=== PATIENT | female | born 1995 | race Caucasian/White ===

== ENCOUNTER 2017-06-13 15:19 | Emergency (ER) | payer BC ==
[2017-06-13 16:42] LABS: BASOPHIL % 0.9 % (0.0-0.4); Eosinophil % 3.8 % (0.00-5.0); Granulocytes % 54.2 % (36.0-66.0); Lymphocytes % 32.1 % (24.0-44.0); Mean Cell Volume 90.4 fl (78-100); Mean Platelet Volume 10.4 fl (6-9.5); Platelet Count 380 K/mm3 (150-450); Red Cell Distribution Width 12.5 % (11.5-14.0); White Blood Count 8.6 K/mm3 (4.0-10.5)
[2017-06-13] MEDS ORDERED: GI COCKTAIL 45 ML (Maalox/Lidocaine) PO ONE (16:45)
[2017-06-13] MEDS ORDERED: Pepcid 20 MG VIAL IV ONE ×2 (16:45→16:56)
[2017-06-13] MEDS ORDERED: Carafate 1 GM PO ONE ×2 (16:45→16:56)
[2017-06-13] MEDS ORDERED: Sodium Chloride 0.9% 1000 ML 1,000 ML IV STA (16:45)
--- NOTE | 2017-06-13 16:45 | ERPHSYRPT ---
- History of Present Illness Time Seen by Provider: 06/13/17 16:38 Historian: patient Exam Limitations: no limitations Patient Subjective Stated Complaint: pt here for abd pain. epigastric pain, was dx with ulcers and is on meds. she states it was getting better untill today, nauseated, not eating well Triage Nursing Assessment: pt alert, walked in, resp easy, abd soft, tender in epigastric area only, Physician History: The patient is a 22-year-old female with parents complaining of exacerbation of her chronic epigastric pain today. She's had epigastric pain/gastric ulcer for more than a year. She is on a proton pump inhibitor. She is careful with what she eats. Today the pain increased causing her to double over. She denies nausea, vomiting, or diarrhea. She denies fever. Her past medical history is significant only for a probable gastric ulcer. Timing/Duration: today Activities at Onset: none Quality: aching, sharpness Abdominal Pain Onset Location: epigastric Pain Radiation: no radiation Severity of Pain-Max: severe Severity of Pain-Current: moderate Modifying Factors: Improves With: antacids Associated Symptoms: denies symptoms Previous symptoms: same symptoms as today Allergies/Adverse Reactions: No Known Drug Allergies Allergy (Verified 06/13/17 15:58) Home Medications: Cetirizine HCl [Zyrtec] 10 mg PO DAILY 06/13/13 [History] Norgestimate-Ethinyl Estradiol [Ortho Tri-Cyclen] 1 each PO UD 06/13/13 [History ] Albuterol Sulfate [Proventil] 2.5 mg IH Q4-6HPRN PRN 06/13/17 [History] PANTOPRAZOLE 40 mg Tablet [Protonix 40MG Tablet] 40 mg DAILY 06/13/17 [ History] Hx Tetanus, Diphtheria Vaccination/Date Given: Yes Hx Influenza Vaccination/Date Given: No Hx Pneumococcal Vaccination/Date Given: No Immunizations Up to Date: Yes - Review of Systems Constitutional: No Fever, No Chills Eyes: No Symptoms Ears, Nose, & Throat: No Symptoms Respiratory: No Cough, No Dyspnea Cardiac: No Chest Pain, No Edema, No Syncope Abdominal/Gastrointestinal: Abdominal Pain, No Nausea, No Vomiting, No Diarrhea Genitourinary Symptoms: No Dysuria Musculoskeletal: No Back Pain, No Neck Pain Skin: No Rash Neurological: No Dizziness, No Focal Weakness, No Sensory Changes Psychological: No Symptoms Endocrine: No Symptoms Hematologic/Lymphatic: No Symptoms Immunological/Allergic: No Symptoms All Other Systems: Reviewed and Negative - Past Medical History Pertinent Past Medical History: Yes Neurological History: No Pertinent History ENT History: No Pertinent History Cardiac History: No Pertinent History Respiratory History: Asthma Endocrine Medical History: No Pertinent History Musculoskeletal History: No Pertinent History GI Medical History: Ulcer History: No Pertinent History Psycho-Social History: No Pertinent History Female Reproductive Disorders: No Pertinent History 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 - Past Surgical History Past Surgical History: No Neuro Surgical History: No Pertinent History Cardiac: No Pertinent History Respiratory: No Pertinent History Gastrointestinal: No Pertinent History Genitourinary: No Pertinent History Musculoskeletal: No Pertinent History Female Surgical History: No Pertinent History - Social History Smoking Status: Never smoker Exposure to second hand smoke: No Drug Use: none Patient Lives Alone: No - Female History Hx Last Menstrual Period: 3 days ago Hx Now: No - Nursing Vital Signs Nursing Vital Signs: Initial Vital Signs Temperature 98.6 F 06/13/17 15:50 Pulse Rate 88 06/13/17 15:50 Respiratory Rate 16 06/13/17 15:50 Blood Pressure 119/58 06/13/17 15:50 O2 Sat by Pulse Oximetry 99 06/13/17 15:50 Pain Scale Pain Intensity 0 - Physical Exam General Appearance: no apparent distress, alert Eye Exam: PERRL/EOMI, eyes nml inspection Ears, Nose, Throat Exam: normal ENT inspection, pharynx normal, moist mucous membranes Neck Exam: normal inspection, non-tender, supple, full range of motion Respiratory Exam: normal breath sounds, lungs clear, No respiratory distress Cardiovascular Exam: regular rate/rhythm, normal heart sounds Gastrointestinal/Abdomen Exam: tenderness (epigastric) Pelvic Exam: not done Rectal Exam: not done Back Exam: normal inspection, normal range of motion, No CVA tenderness, No vertebral tenderness Extremity Exam: normal inspection, normal range of motion, pelvis stable Neurologic Exam: alert, oriented x 3, cooperative, normal mood/affect, nml cerebellar function, sensation nml, No motor deficits Skin Exam: normal color, warm, dry SpO2 Interpretation: normal SpO2: 99 Oxygen Delivery: Room Air Ordered Tests: Active Orders 24 hr Category Date Time Status Clean Catch Urine Specimen STAT Care 06/13/17 16:33 Active IV Insertion STAT Care 06/13/17 16:45 Active CBC W DIFF Stat Lab 06/13/17 16:30 Completed CMP Stat Lab 06/13/17 16:30 Completed HCG,QUALITATIVE URINE Stat Lab 06/13/17 16:30 Completed LIPASE Stat Lab 06/13/17 16:30 Completed UA W/ MICROSCOPIC Stat Lab 06/13/17 16:30 Completed Medication Summary Generic Name Dose Route Start Last Admin Trade Name Freq PRN Reason Stop Dose Admin Sodium Chloride 1,000 mls @ 999 mls/hr 06/13/17 16:45 06/13/17 17:03 Sodium Chloride 0.9% 1000 Ml IV 06/13/17 17:45 999 mls/hr .Q1H1M STA Administration Discontinued Medications Generic Name Dose Route Start Last Admin Trade Name Freq PRN Reason Stop Dose Admin Al Hydrox/Mg Hydrox/Simethicone Confirm 06/13/17 16:56 Maalox Es 30 Ml Unit Dose Administered 06/13/17 16:57 Dose 30 ml .ROUTE .STK-MED ONE Famotidine 20 mg 06/13/17 16:45 06/13/17 16:57 Pepcid 20 Mg Vial IV 06/13/17 16:46 20 mg STAT ONE Administration Famotidine Confirm 06/13/17 16:56 Pepcid 20 Mg Vial Administered 06/13/17 16:57 Dose 20 mg IV .STK-MED ONE Sodium Chloride Confirm 06/13/17 16:56 Sodium Chloride 0.9% 1000 Ml Administered 06/13/17 16:57 Dose 1,000 mls @ ud .ROUTE .STK-MED ONE Lidocaine HCl Confirm 06/13/17 16:56 Xylocaine Hcl Viscous * Administered 06/13/17 16:57 Dose 1 ml .ROUTE .STK-MED ONE Magnesium Hydroxide 45 ml 06/13/17 16:45 06/13/17 16:59 Gi Cocktail 45 Ml (Maalox/Lidocaine) PO 06/13/17 16:46 45 ml STAT ONE Administration Sucralfate 1 g 06/13/17 16:45 06/13/17 16:57 Carafate 1 Gm PO 06/13/17 16:46 1 g STAT ONE Administration Sucralfate Confirm 06/13/17 16:56 Carafate 1 Gm Administered 06/13/17 16:57 Dose 1 g PO .STK-MED ONE Lab/Rad Data: Laboratory Result Diagrams 06/13/17 16:30 06/13/17 16:30 Laboratory Results 06/13/17 06/13/17 06/13/17 Range/Units 16:30 16:30 16:30 WBC 8.6 (4.0-10.5) K/mm3 RBC 4.70 (4.1-5.4) M/mm3 Hgb 14.1 (12.0-16.0) gm/dl Hct 42.5 (35-47) % MCV 90.4 (78-100) fl MCH 30.0 (26-32) pg MCHC 33.2 (32-36) g/dl RDW 12.5 (11.5-14.0) % Plt Count 380 (150-450) K/mm3 MPV 10.4 H (6-9.5) fl Gran % 54.2 (36.0-66.0) % Lymphocytes % 32.1 (24.0-44.0) % Monocytes % 9.0 (0.0-12.0) % Eosinophils % 3.8 (0.00-5.0) % Basophils % 0.9 (0.0-0.4) % Basophils # 0.08 (0-0.4) Sodium 139 (136-145) mEq/L Potassium 4.0 (3.5-5.1) mEq/L Chloride 103 (98-107) mEq/L Carbon Dioxide 26.4 (21-32) mEq/L Anion Gap 13.5 (5-15) MEQ/L BUN 9 (9-20) mg/dL Creatinine 0.87 (0.55-1.30) mg/dl Estimated GFR > 60 ML/MIN Glucose 83 (70-110) MG/DL Calcium 9.4 (8.5-10.1) mg/dL Total Bilirubin 0.40 (0.2-1.0) mg/dL AST 16 (15-37) U/L ALT 20 (12-78) U/L Alkaline Phosphatase 52 (46-116) U/L Serum Total Protein 7.8 (6.4-8.2) gm/dL Albumin 4.0 (3.4-5.0) g/dL Lipase 136 (73-393) U/L Ur Collection Type Urine Color (YELLOW) Urine Appearance (CLEAR) Urine pH (5-6) Ur Specific [place] (1.005-1.025) Urine Protein (Negative) Urine Ketones (NEGATIVE) Urine Blood (0-5) Dhaval/ul Urine Nitrite (NEGATIVE) Urine Bilirubin (NEGATIVE) Urine Urobilinogen (0-1) mg/dL Ur Leukocyte Esterase (NEGATIVE) Urine Microscopic RBC (0-2) /HPF Urine Microscopic WBC (0-5) /HPF Ur Epithelial Cells (FEW) /HPF Urine Bacteria (NEGATIVE) /HPF Urine Culture Reflexed (NO) Urine Glucose (NEGATIVE) mg/dL Urine HCG, Qual NEGATIVE (Negative) Specimen Received 06/13/17 Range/Units 16:30 WBC (4.0-10.5) K/mm3 RBC (4.1-5.4) M/mm3 Hgb (12.0-16.0) gm/dl Hct (35-47) % MCV (78-100) fl MCH (26-32) pg MCHC (32-36) g/dl RDW (11.5-14.0) % Plt Count (150-450) K/mm3 MPV (6-9.5) fl Gran % (36.0-66.0) % Lymphocytes % (24.0-44.0) % Monocytes % (0.0-12.0) % Eosinophils % (0.00-5.0) % Basophils % (0.0-0.4) % Basophils # (0-0.4) Sodium (136-145) mEq/L Potassium (3.5-5.1) mEq/L Chloride (98-107) mEq/L Carbon Dioxide (21-32) mEq/L Anion Gap (5-15) MEQ/L BUN (9-20) mg/dL Creatinine (0.55-1.30) mg/dl Estimated GFR ML/MIN Glucose (70-110) MG/DL Calcium (8.5-10.1) mg/dL Total Bilirubin (0.2-1.0) mg/dL AST (15-37) U/L ALT (12-78) U/L Alkaline Phosphatase (46-116) U/L Serum Total Protein (6.4-8.2) gm/dL Albumin (3.4-5.0) g/dL Lipase (73-393) U/L Ur Collection Type VOID Urine Color YELLOW (YELLOW) Urine Appearance CLEAR (CLEAR) Urine pH 6.0 (5-6) Ur Specific [place] 1.010 (1.005-1.025) Urine Protein NEGATIVE (Negative) Urine Ketones NEGATIVE (NEGATIVE) Urine Blood NEGATIVE (0-5) Dhaval/ul Urine Nitrite NEGATIVE (NEGATIVE) Urine Bilirubin NEGATIVE (NEGATIVE) Urine Urobilinogen NORMAL (0-1) mg/dL Ur Leukocyte Esterase NEGATIVE (NEGATIVE) Urine Microscopic RBC 0-2 (0-2) /HPF Urine Microscopic WBC 0-2 (0-5) /HPF Ur Epithelial Cells RARE (FEW) /HPF Urine Bacteria RARE (NEGATIVE) /HPF Urine Culture Reflexed NO (NO) Urine Glucose NEGATIVE (NEGATIVE) mg/dL Urine HCG, Qual (Negative) Specimen Received 06/13/17 2414 - Progress Progress: improved Progress Note: 06/13/17 17:22 After a GI Cocktail pt is feeling much better. Counseled pt/family regarding: lab results, diagnosis, need for follow-up - Departure Time of Disposition: 17:24 Departure Disposition: Home Clinical Impression: Gastritis Condition: Stable Critical Care Time: No Referrals: SO VILLAFUERTE [Primary Care Provider] - Additional Instructions: You have gastritis. You were given famotidine 20 mg and fluids by IV in the ER. You were given a GI cocktail and Carafate 1 g in the ER. Take Carafate 1 g 4 times a day. Follow-up with your local doctor within 1 week for reevaluation. Continue to take your other medications as directed. Prescriptions: Sucralfate [Carafate] 1 g PO QID #28 tablet
[2017-06-13 16:54] LABS: Bilirubin NEGATIVE (NEGATIVE); Blood NEGATIVE Ery/ul (0-5); COMPLETE URINE MICROSCOPIC? YES; Collection Type VOID; Glucose NEGATIVE (NEGATIVE); Leukocyte Esterase NEGATIVE (NEGATIVE)
[2017-06-13 16:55] LABS: ADD URINE CULTURE? NO (NO); Bacteria RARE /HPF (NEGATIVE); Epithelial Cells RARE /HPF (FEW); WBC 0-2 /HPF (0-5)
[2017-06-13] MEDS ORDERED: XYLOCAINE HCl Viscous ONE (16:56)
[2017-06-13] MEDS ORDERED: MAALOX ES 30 ML UNIT DOSE ONE (16:56)
[2017-06-13] MEDS ORDERED: Sodium Chloride 0.9% 1000 ML 1,000 ML ONE (16:56)
[2017-06-13 17:20] LABS: ALKALINE PHOSPHATASE 52 U/L (46-116); ANION GAP 13.5 MEQ/L (5-15); BLOOD UREA NITROGEN 9 mg/dL (9-20); CHLORIDE 103 mEq/L (98-107); Carbon Dioxide 26.4 mEq/L (21-32); Glucose 83 MG/DL (70-110); LIPASE 136 U/L (73-393); SGOT/AST 16 U/L (15-37); SGPT/ALT 20 U/L (12-78); SODIUM 139 mEq/L (136-145); Total Protein 7.8 gm/dL (6.4-8.2)
[2017-06-13 17:44] VITALS: BP 107/49; PULSE 78; O2SAT 100
== END 2017-06-13 17:44 | disposition home or self-care (01) ==
LOC: ED 15:19
DX: K29.70 Gastritis, unspecified, without bleeding (principal); R10.13 Epigastric pain; G89.29 Other chronic pain; K25.9 Gastric ulcer, unspecified as acute or chronic, without hemorrhage or perforation; Z79.899 Other long term (current) drug therapy
CPT/HCPCS: 36000; 36415; 80053; 81000; 83690; 84703; 85025; 96360; 96374; 99284; A9270-GY

== ENCOUNTER 2021-11-05 10:47 | Day surgery (SDC) | payer BC ==
[~2021-11-05 10:47] MED LIST: MEFOXIN 2 GM PREMIX** 2 GM/50 ML ML IV SCH; Sensorcaine 0.25% 10 ML ONE
[2021-11-05 11:29] VITALS: O2SAT 100
[2021-11-05] MEDS ORDERED: Lactated Ringers 1,000 ML IV SCH (11:30)
[2021-11-05] MEDS ORDERED: MEFOXIN 2 GM PREMIX** 2 GM/50 ML ML IV ONE (11:50)
[2021-11-05] MEDS ORDERED: Lactated Ringers 1,000 ML IV ONE (11:50)
[2021-11-05] MEDS ORDERED: Zofran 4 MG/2 ML VIAL ONE (12:43)
[2021-11-05] MEDS ORDERED: Xylocaine-Mpf 2% 5 Ml Vial ONE (12:43)
[2021-11-05] MEDS ORDERED: Versed 2 MG/2 ML Injection ONE (12:43)
[2021-11-05] MEDS ORDERED: TORAdol 30 mg Injection ONE (12:43)
[2021-11-05] MEDS ORDERED: DIPRIVAN 200 MG/20 ML IV ONE (12:43)
[2021-11-05] MEDS ORDERED: Decadron 4 MG INJ ONE (12:43)
[2021-11-05] MEDS ORDERED: BRIDION 200MG/2ML IV ONE (12:43)
[2021-11-05] MEDS ORDERED: Zemuron 100 MG/10 ML ONE (12:43)
[2021-11-05] MEDS ORDERED: SUBLIMAZE 100 MCG/2 ML ONE (12:43)
[2021-11-05 15:27] VITALS: BP 119/82; PULSE 54
--- NOTE | 2021-11-06 08:35 | OP ---
SURGERY DATE/TIME: 11/05/2021 1251 PREOPERATIVE DIAGNOSIS: Gallbladder dyskinesia. POSTOPERATIVE DIAGNOSES: 1) Gallbladder dyskinesia. 2) Cholesterolosis. PROCEDURE: Laparoscopic cholecystectomy. SURGEON: Dr. Sam Diaz. ANESTHESIA: General endotracheal tube. ESTIMATED BLOOD LOSS: None. DRAINS: None. COMPLICATIONS: None. CONDITION: Stable. INDICATIONS: A patient with upper abdominal symptoms. HIDA scan 8%. Seen and examined wishes to proceed with surgery. DESCRIPTION OF PROCEDURE AND FINDINGS: Taken to surgery. General anesthetic, routine prep and drape. Veress needle inserted. Opening pressure of -1, insufflating pressure 14. Four - 5's under direct visualization. Good visualization was present. The camera switched to epigastric port looking down to umbilicus and pelvis and this was satisfactory. Anterior abdominal surface was totally normal. Liver normal. Gallbladder distended and sloppy. Cystic duct defined. Cystic artery defined. Both structures triply clipped and transected. Clips noted across and well approximated. Gallbladder rolled out of gallbladder fossa. The gallbladder delivered through the epigastric port with minimal widening. No hole closure device was used. Skin closed with 4-0 Vicryl and Steri-Strips. The patient tolerated the procedure satisfactorily.
== END 2021-11-05 15:34 | disposition home or self-care (01) ==
LOC: SDC 10:47
PROVIDERS: ATTEND Surgery
DX: K82.9 Disease of gallbladder, unspecified (principal); K82.4 Cholesterolosis of gallbladder
CPT/HCPCS: 84703; J0694; J1100; J1885; J2250; J2405; J2704; J3010

== ENCOUNTER 2023-04-25 21:43 | Emergency (ER) | payer OTHER ==
[2023-04-25] MEDS ORDERED: Sodium Chloride 0.9% 1000 ML 1,000 ML IV STA (21:46)
[2023-04-25 21:57] VITALS: TEMP 98.3
[2023-04-25] MEDS ORDERED: Sodium Chloride 0.9% 1000 ML 1,000 ML ONE (22:02)
--- NOTE | 2023-04-25 22:13 | ERPHSYRPT ---
- History of Present Illness Time Seen by Provider: 04/25/23 21:45 Historian: patient Exam Limitations: no limitations Patient Subjective Stated Complaint: back pain with rt abd pain Triage Nursing Assessment: pt ambulated in ER without diff, mom at bedside. Pt c/o mid back pain that radiates around to right lower abd area. Abd soft with active bs x 4 quad, tender to RLQ on palpation. LBM today. Pt denies any nausea, vomiting or diarrhea. Physician History: Patient's had some intermittent abdominal pain and back pain over the last 4 days, worse 3 days ago, and was evaluated at an outside urgent care prior to [facility] emergency room and was recommended she come to emergency room for further evaluation and management Timing/Duration: day(s) (4) Activities at Onset: none Quality: aching, cramping Abdominal Pain Onset Location: RUQ Pain Radiation: RLQ, back Severity of Pain-Max: moderate Severity of Pain-Current: mild Modifying Factors: Improves With: nothing Associated Symptoms: No back, No chest pain, No diaphoresis, No diarrhea, No fever/chills, No fatigue, No headache, No heartburn, No loss of appetite, No nausea, No neck pain, No rash, No shortness of breath, No syncope, No vomiting, No weakness Previous symptoms: no prior history, recently seen (Referred to the emergency room due to concerns of something else in the abdomen occurring such as appe ndicitis) Allergies/Adverse Reactions: shellfish derived Allergy (Verified 04/25/23 22:06) hives, swelling, trouble breathing and swallowing shrimp Allergy (Verified 04/25/23 22:06) hives, swelling, trouble breathing and swallowing tree nut Allergy (Verified 04/25/23 22:06) hives, swelling, trouble breathing and swallowing Hx Tetanus, Diphtheria Vaccination/Date Given: Yes Hx Influenza Vaccination/Date Given: No Hx Pneumococcal Vaccination/Date Given: No Immunizations Up to Date: Yes Travel Risk - International Travel Have you traveled outside of the country in past 3 weeks: No - Coronavirus Screening Are you exhibiting any of the following symptoms?: No Close contact with a COVID-19 positive Pt in past 14-21 Days: Yes - Vaccine Status Have you recieved a Covid-19 vaccination: Yes 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 - Review of Systems Constitutional: No Fever, No Chills Eyes: No Symptoms Ears, Nose, & Throat: No Symptoms, No Throat Pain Respiratory: No Cough, No Dyspnea Cardiac: No Chest Pain, No Edema, No Syncope Abdominal/Gastrointestinal: Abdominal Pain, No Nausea, No Vomiting, No Diarrhea, No Hematemesis, No Hematochezia, No Melena Genitourinary Symptoms: No Dysuria, No Frequency, No Hematuria, No Urgency, No Vaginal Discharge Musculoskeletal: Back Pain, No Neck Pain Skin: No Rash Neurological: No Dizziness, No Focal Weakness, No Sensory Changes Psychological: No Symptoms Endocrine: No Symptoms All Other Systems: Reviewed and Negative - Past Medical History Pertinent Past Medical History: Yes Neurological History: No Pertinent History ENT History: No Pertinent History Cardiac History: No Pertinent History Respiratory History: Asthma Endocrine Medical History: No Pertinent History Musculoskeletal History: No Pertinent History GI Medical History: Gallbladder Disease History: No Pertinent History Psycho-Social History: No Pertinent History Female Reproductive Disorders: No Pertinent History Other Medical History: MONO - Past Surgical History Past Surgical History: Yes Neuro Surgical History: No Pertinent History Cardiac: No Pertinent History Respiratory: No Pertinent History Gastrointestinal: Cholecystectomy Genitourinary: No Pertinent History Musculoskeletal: No Pertinent History Female Surgical History: No Pertinent History - Social History Smoking Status: Never smoker Exposure to second hand smoke: No Drug Use: none Patient Lives Alone: No - Female History Hx Last Menstrual Period: 04/20/23 Hx Now: No - Nursing Vital Signs Nursing Vital Signs: Initial Vital Signs Temperature 98.3 F 04/25/23 21:53 Pulse Rate 64 04/25/23 21:53 Respiratory Rate 16 04/25/23 21:53 Blood Pressure 108/73 04/25/23 21:53 O2 Sat by Pulse Oximetry 100 04/25/23 21:53 Pain Scale Pain Intensity 0 - Physical Exam General Appearance: no apparent distress, alert Eye Exam: PERRL/EOMI, eyes nml inspection, No scleral icterus Ears, Nose, Throat Exam: normal ENT inspection, pharynx normal, moist mucous membranes Neck Exam: normal inspection, non-tender, supple, full range of motion Respiratory Exam: normal breath sounds, lungs clear, No respiratory distress Cardiovascular Exam: regular rate/rhythm, normal heart sounds Gastrointestinal/Abdomen Exam: soft, normal bowel sounds, No tenderness, No distention, No mass, No rebound Back Exam: normal inspection, normal range of motion, No CVA tenderness, No vertebral tenderness Extremity Exam: normal inspection, normal range of motion, pelvis stable Neurologic Exam: alert, oriented x 3, cooperative, lawn specialist II-XII nml as tested, normal mood/affect, sensation nml, No motor deficits Skin Exam: normal color, warm, dry, No jaundice, No jaundice SpO2 Interpretation: normal SpO2: 100 O2 Delivery: Room Air - Course Nursing assessment & vital signs reviewed: Yes - Radiology Exams Abdomen X-ray Interpretation: Interpreted by me, Reviewed by me, Other (No abnormal calcifications; no free air; no air-fluid levels; moderate amount of stool noted in the 6 transverse colon as well as in the ascending colon) - CT Exams Abdomen/Pelvis CT Interpretation: Tele-radiologist Report, Other (Enlarged fatty liver; no evidence of appendicitis; no ovarian or uterine pathology was detected) Ordered Tests: Active Orders 24 hr Category Date Time Status IV Insertion STAT Care 04/25/23 21:46 Active ABDOMEN 2 VIEW Stat Exams 04/25/23 22:45 Taken ABDOMEN AND PELVIS W CONTRAST [CT] Stat Exams 04/25/23 23:31 Completed CBC W DIFF Stat Lab 04/25/23 22:15 Completed CMP Stat Lab 04/25/23 22:15 Completed HCG QUALITATIVE, URINE Stat Lab 04/25/23 21:46 Completed LIPASE Stat Lab 04/25/23 22:15 Completed Lactic Acid Stat Lab 04/25/23 22:00 Completed UA W/RFX UR CULTURE Stat Lab 04/25/23 21:46 Completed Medication Summary Discontinued Medications Generic Name Dose Route Start Last Admin Trade Name Feli PRN Reason Stop Dose Admin Methylprednisolone Sodium 0 mg 04/25/23 23:39 04/25/23 23:43 Succinate 80 mg/ Sterile Water IV 04/25/23 23:40 80 mg 2 ml STAT ONE Administration Diphenhydramine HCl 50 mg 04/25/23 23:39 04/25/23 23:42 Diphenhydramine Hcl 50 Mg/Ml Vial IV 04/25/23 23:40 50 mg STAT ONE Administration Diphenhydramine HCl Confirm 04/25/23 23:41 Diphenhydramine Hcl 50 Mg/Ml Vial Administered 04/25/23 23:42 Dose 50 mg .ROUTE .STK-MED ONE Sodium Chloride 1,000 mls @ 999 mls/hr 04/25/23 21:46 04/25/23 23:31 Sodium Chloride 0.9% 1000 Ml IV 04/25/23 22:46 Infused .Q1H1M STA Infusion Sodium Chloride Confirm 04/25/23 22:02 Sodium Chloride 0.9% 1000 Ml Administered 04/25/23 22:03 Dose 1,000 mls @ ud .ROUTE .STK-MED ONE Ketorolac Tromethamine 15 mg 04/25/23 22:48 04/25/23 22:52 Ketorolac Tromethamine 30 Mg/Ml Inj IV 04/25/23 22:49 15 mg STAT ONE Administration Ketorolac Tromethamine Confirm 04/25/23 22:50 Ketorolac Tromethamine 30 Mg/Ml Inj Administered 04/25/23 22:51 Dose 30 mg .ROUTE .STK-MED ONE Methylprednisolone Sodium Succinate Confirm 04/25/23 23:41 Methylprednis Sod Succ 125 Mg/2 Ml Vial Administered 04/25/23 23:42 Dose 125 mg .ROUTE .STK-MED ONE Sterile Water Confirm 04/25/23 23:41 Water For Injection,Sterile 10 Ml Vial Administered 04/25/23 23:42 Dose 10 ml IJ .STK-MED ONE Lab/Rad Data: Laboratory Result Diagrams 04/25/23 22:15 04/25/23 22:15 Laboratory Results 04/25/23 04/25/23 04/25/23 Range/Units 22:15 22:15 22:00 WBC 11.0 H (4.0-10.5) x10^3/uL RBC 4.51 (4.1-5.4) x10^6/uL Hgb 13.8 (12.0-16.0) g/dL Hct 42.1 (35-47) % MCV 93.3 (78-100) fL MCH 30.6 (26-32) pg MCHC 32.8 (32-36) g/dL RDW 12.0 (11.5-14.0) % Plt Count 336 (150-450) x10^3/uL MPV 9.7 (7.5-11.0) fL Gran % 61.4 (36.0-66.0) % Immature Gran % (Auto) 0.3 (0.00-0.4) % Nucleat RBC Rel Count 0.0 (0.00-0.1) % Eos # (Auto) 0.49 (0-0.5) x10^3/uL Immature Gran # (Auto) 0.03 (0.00-0.03) x10^3u/L Absolute Lymphs (auto) 2.77 (1.0-4.6) x10^3/uL Absolute Monos (auto) 0.85 (0.0-1.3) x10^3/uL Absolute Nucleated RBC 0.00 (0.00-0.01) x10^3u/L Lymphocytes % 25.2 (24.0-44.0) % Monocytes % 7.7 (0.0-12.0) % Eosinophils % 4.5 (0.00-5.0) % Basophils % 0.9 (0.0-0.4) % Absolute Granulocytes 6.76 (1.4-6.9) x10^3/uL Basophils # 0.10 (0-0.4) x10^3/uL Sodium 137 (137-145) mmol/L Potassium 3.8 (3.5-5.1) mmol/L Chloride 102 (98-107) mmol/L Carbon Dioxide 30 (22-30) mmol/L Anion Gap 8.6 (5-15) MEQ/L BUN 17 (7-17) mg/dL Creatinine 0.87 (0.52-1.04) mg/dL Estimated GFR > 60.0 ML/MIN Glucose 84 (74-106) mg/dL Lactic Acid 1.0 (0.4-2.0) Calcium 9.0 (8.4-10.2) mg/dL Total Bilirubin 0.70 (0.2-1.3) mg/dL AST 30 (14-36) U/L ALT 26 (0-35) U/L Alkaline Phosphatase 56 (38-126) U/L Serum Total Protein 7.3 (6.3-8.2) g/dL Albumin 4.2 (3.5-5.0) g/dL Lipase 97 (23-300) U/L Urine Color (Yellow) Urine Appearance (Clear) Urine pH (4.6-8.0) Ur Specific Castor (1.005-1.030) Urine Protein (Negative) Urine Glucose (UA) (Negative) mg/dL Urine Ketones (Negative) Urine Blood (Negative) Urine Nitrite (Negative) Urine Bilirubin (Negative) Urine Urobilinogen (0.2) mg/dL Ur Leukocyte Esterase (Negative) U Hyaline Cast (Auto) (0-2) /LPF Urine Microscopic RBC (0-5) /HPF Urine Microscopic WBC (0-5) /HPF Ur Epithelial Cells (None Seen) /HPF Urine Bacteria (None Seen) /HPF Urine Culture Reflexed (NO) Urine HCG, Qual (NEGATIVE) 04/25/23 04/25/23 Range/Units 21:46 21:46 WBC (4.0-10.5) x10^3/uL RBC (4.1-5.4) x10^6/uL Hgb (12.0-16.0) g/dL Hct (35-47) % MCV (78-100) fL MCH (26-32) pg MCHC (32-36) g/dL RDW (11.5-14.0) % Plt Count (150-450) x10^3/uL MPV (7.5-11.0) fL Gran % (36.0-66.0) % Immature Gran % (Auto) (0.00-0.4) % Nucleat RBC Rel Count (0.00-0.1) % Eos # (Auto) (0-0.5) x10^3/uL Immature Gran # (Auto) (0.00-0.03) x10^3u/L Absolute Lymphs (auto) (1.0-4.6) x10^3/uL Absolute Monos (auto) (0.0-1.3) x10^3/uL Absolute Nucleated RBC (0.00-0.01) x10^3u/L Lymphocytes % (24.0-44.0) % Monocytes % (0.0-12.0) % Eosinophils % (0.00-5.0) % Basophils % (0.0-0.4) % Absolute Granulocytes (1.4-6.9) x10^3/uL Basophils # (0-0.4) x10^3/uL Sodium (137-145) mmol/L Potassium (3.5-5.1) mmol/L Chloride (98-107) mmol/L Carbon Dioxide (22-30) mmol/L Anion Gap (5-15) MEQ/L BUN (7-17) mg/dL Creatinine (0.52-1.04) mg/dL Estimated GFR ML/MIN Glucose (74-106) mg/dL Lactic Acid (0.4-2.0) Calcium (8.4-10.2) mg/dL Total Bilirubin (0.2-1.3) mg/dL AST (14-36) U/L ALT (0-35) U/L Alkaline Phosphatase (38-126) U/L Serum Total Protein (6.3-8.2) g/dL Albumin (3.5-5.0) g/dL Lipase (23-300) U/L Urine Color Yellow (Yellow) Urine Appearance Clear (Clear) Urine pH 5.5 (4.6-8.0) Ur Specific Castor 1.010 (1.005-1.030) Urine Protein Negative (Negative) Urine Glucose (UA) Negative (Negative) mg/dL Urine Ketones Trace A (Negative) Urine Blood Negative (Negative) Urine Nitrite Negative (Negative) Urine Bilirubin Negative (Negative) Urine Urobilinogen 0.2 (0.2) mg/dL Ur Leukocyte Esterase Negative (Negative) U Hyaline Cast (Auto) NONE SEEN (0-2) /LPF Urine Microscopic RBC 0-2 (0-5) /HPF Urine Microscopic WBC 0-2 (0-5) /HPF Ur Epithelial Cells Rare (None Seen) /HPF Urine Bacteria None Seen (None Seen) /HPF Urine Culture Reflexed NO (NO) Urine HCG, Qual NEGATIVE (NEGATIVE) - Progress Progress: improved Progress Note: 04/25/23 22:42 Patient has not had any return of her pain and has no acute complaints currently 04/25/23 22:48 Patient's pain has returned, so will do a dose of IV Toradol and will check an acute abdominal series 04/25/23 23:23 Patient is having tenderness on repeat evaluation on abdominal exam in the right lower quadrant, although the Toradol did help the symptoms before repeat examination, so we will get a CT of the abdomen pelvis. I reviewed with patient and her mother that labs were not definitive of any acute abnormality, and exa mination, although tender in that area of where her appendix may be, I did not feel a CT scan would show a specific answer at this time, but the patient and her mother requested a CT scan so CT of the abdomen pelvis will be performed. 04/25/23 23:40 clinical office technician notified me that patient has a shellfish allergy, so we will give a dose of IV Benadryl and Solu-Medrol and wait the timeframe according to the protocol before getting the CT scan with contrast 04/26/23 02:32 Patient is currently pain-free and I reviewed with her and her mother the results of her CT scan 04/26/23 02:35 Patient 28-year-old female came to emergency room with right-sided abdominal pain, more predominant right lower quadrant with some back pain after being evaluated in outside urgent care. Patient had no significant findings in regards to lab work, and acute abdominal series x-ray does not show any significant abnormalities to explain her pain, but after discussion with patient mother, they requested getting further imaging such as CT of the abdomen pelvis performed although I told him that it was a lower probability that would come back positive. CT scan of the abdomen pelvis only showed enlarged fatty liver but otherwise no other acute abnormalities no signs appendicitis or ovarian, adnexal or uterine pathology was seen on the CT scan. Patient resolution of her symptoms here in the emergency department, and at this time I do not feel she requires immediate gynecologic surgical consultation, general surgical consultation or urologic surgical consultation and can be discharged home to follow-up as an outpatient with referral to gynecology and primary care to continue evaluation of her symptoms. Patient or stands return back to the nearest emergency room if she has any new fever, new abdominal pain, new pelvic pain, new vaginal discharge, new dysuria, hematuria, new melena, hematochezia, new chest pain, new dyspnea or any other concerning signs or symptoms that were not present at today's emergency department visit for immediate reevaluation in the nearest emergency department Counseled pt/family regarding: lab results, diagnosis, need for follow-up, rad results - Departure Departure Disposition: Home Clinical Impression: RLQ abdominal pain, Fatty liver Condition: Good Critical Care Time: No Referrals: SUSAN DIAZ NP [Primary Care Provider] - Follow up with PCP 1 day DANIELLE MAST DO [ACTIVE STAFF] - Follow up with PCP 1 day ([facility] Worker for your reference) Instructions: Severe Abdominal Pain, Adult (DC) Additional Instructions: Return back to the nearest emergency room if you have any worsening abdominal pain, new pelvic pain, new vaginal discharge, new fever, new uncontrollable nausea or vomiting, new black or red stools, new painful urination, new chest pain, shortness of breath or any other concerning signs or symptoms that were not present at today's emergency room visit for immediate reevaluation in the nearest emergency room Forms: Work/School Release Form Prescriptions: Etodolac 400 mg [Lodine 400 mg] 400 mg PO BID PRN PRN #20 tablet PRN Reason: Pain
[2023-04-25 22:19] LABS: Absolute Neutrophil Ct (ANC) 6.76 x10^3/uL (1.4-6.9); BASOPHIL % 0.9 % (0.0-0.4); Eosinophil % 4.5 % (0.00-5.0); Eosinophil (Absolute #) 0.49 x10^3/uL (0-0.5); Hematocrit 42.1 % (35-47); Hemoglobin 13.8 g/dL (12.0-16.0); IMMATURE GRAN # 0.03 x10^3u/L (0.00-0.03); IMMATURE GRAN % 0.3 % (0.00-0.4); Lymphocyte (Absolute #) 2.77 x10^3/uL (1.0-4.6); Lymphocytes % 25.2 % (24.0-44.0); Mean Cell Volume 93.3 fL (78-100); Mean Corpuscular Hemoglobin 30.6 pg (26-32); Mean Corpuscular Hgb Concent. 32.8 g/dL (32-36); Mean Platelet Volume 9.7 fL (7.5-11.0); Monocyte (Absolute #) 0.85 x10^3/uL (0.0-1.3); Monocytes % 7.7 % (0.0-12.0); Neutrophil % 61.4 % (36.0-66.0); Platelet Count 336 x10^3/uL (150-450); Red Blood Count 4.51 x10^6/uL (4.1-5.4)
[2023-04-25 22:22] LABS: HCG URINE TEST NEGATIVE (NEGATIVE)
[2023-04-25 22:26] LABS: Appearance Clear (Clear); Bacteria None Seen /HPF (None Seen); Bilirubin Negative (Negative); Blood Negative (Negative); Epithelial Cells Rare /HPF (None Seen); Glucose, Urine Negative (Negative); Hyaline Casts NONE SEEN /LPF (0-2); Ketones Trace (Negative); Leukocyte Esterase Negative (Negative); Nitrite Negative (Negative); Ph 5.5 (4.6-8.0); Protein,Urine Dip Negative (Negative); RBC 0-2 /HPF (0-5); Urobilinogen 0.2 mg/dL (0.2); WBC 0-2 /HPF (0-5)
[2023-04-25 22:28] LABS: ADD URINE CULTURE? NO (NO)
[2023-04-25 22:32] LABS: ALBUMIN 4.2 g/dL (3.5-5.0); ALKALINE PHOSPHATASE 56 U/L (38-126); ANION GAP 8.6 MEQ/L (5-15); BLOOD UREA NITROGEN 17 mg/dL (7-17); CHLORIDE 102 mmol/L (98-107); Carbon Dioxide 30 mmol/L (22-30); Creatinine 1 0.87 mg/dL (0.52-1.04); EST GLOMERULAR FILTRATION RATE > 60.0 ML/MIN; Glucose 84 mg/dL (74-106); LIPASE 97 U/L (23-300); Potassium 3.8 mmol/L (3.5-5.1); SGOT/AST 30 U/L (14-36); SGPT/ALT 26 U/L (0-35); SODIUM 137 mmol/L (137-145); Total Protein 7.3 g/dL (6.3-8.2)
[2023-04-25] MEDS ORDERED: TORAdol 30 mg Injection IV ONE (22:48)
[2023-04-25] MEDS ORDERED: TORAdol 30 mg Injection ONE (22:50)
[2023-04-25] MEDS ORDERED: solu-MEDROL 80 MG, Sterile H2O 10 ml 2 ML IV ONE ×2 (23:39)
[2023-04-25] MEDS ORDERED: BENADRYL 50 MG/ML IV ONE (23:39)
[2023-04-25] MEDS ORDERED: Sterile H2O 10 ml IJ ONE (23:41)
[2023-04-25] MEDS ORDERED: BENADRYL 50 MG/ML ONE (23:41)
[2023-04-25] MEDS ORDERED: solu-MEDROL ONE (23:41)
[2023-04-26 00:09] VITALS: RESP 16
[2023-04-26 02:04] VITALS: BP 108/67; PULSE 52
--- NOTE | 2023-04-26 02:22 | XRAY ---
CLINICAL HISTORY:RLQ abdominal pain COMPARISON:None TECHNIQUE:Continuous axial slices of CT scan of the abdomen and pelvis was taken with IV contrast. 80 cc Isovue 370. 100ml) was administered as an intravenous contrast agent.; Coronal and sagittal reconstructive images were also obtained. CTDI: 3.11mGy, DLP:320 mGy*cm FINDINGS: The liver is mildly enlarged measuring 16.7 cm with normal parenchymal density. No focal or diffuse parenchymal abnormality. The portal vein, intrahepatic biliary radicals, and the bile ducts are normal. The spleen, pancreas, and adrenal glands are unremarkable. The kidneys are unremarkable. They are normal in size and shape. No calculi or hydronephrosis. The gallbladder is not seen. Surgical clips in the right hypochondrium are consistent with cholecystectomy. The ascending colon, the transverse colon, and the descending colon visualized small bowel loops are unremarkable. No evidence of appendicitis was seen. There is no evidence of significant enlargement of the mesenteric or retroperitoneal lymph nodes. The urinary bladder is unremarkable. The rectosigmoid colon is unremarkable. The uterus and both ovaries appear normal in size and morphologies. No ovarian or uterine pathology was depicted. The pelvic vasculature is unremarkable. No evidence of pelvic lymphadenopathy. The osseous structures in the pelvis, lower rib cage, and lumbar spine show no abnormality. No lytic or sclerotic bone lesions. IMPRESSION: No evidence of appendicitis. No ovarian or uterine pathology was depicted. Enlarged fatty liver. Electronically Signed by: Re Couch MD. (04/26/2023 01:21:24 [employer])
[2023-04-26 02:26] VITALS: O2SAT 100
--- NOTE | 2023-04-26 08:40 | XRAY ---
Indication: Right abdomen and back pain. Comparison: None 2 view abdomen nonacute and nonobstructed with mild diffuse colonic fecal debris and cholecystectomy clips. Solid organs and osseous structures unremarkable.
== END 2023-04-26 02:41 | disposition home or self-care (01) ==
LOC: ED 21:43
DX: R10.31 Right lower quadrant pain (principal); K76.0 Fatty (change of) liver, not elsewhere classified; M54.9 Dorsalgia, unspecified
CPT/HCPCS: 36000; 36415; 74021; 74177; 80053; 81001; 81025; 83605; 83690; 85025; 96360; 96374; 96375; 99284; J1200; J1885; J2930